=== PATIENT | male | born 1935 | race American Indian/Alaskan Native ===

== ENCOUNTER 2017-04-27 17:18 | Emergency (ER) | payer MEDICARE ==
[~2017-04-27] VITALS: Ht 177.8 cm; Wt 114.8 kg
[~2017-04-27 17:18] MED LIST: ASPI81CH PO; ATOR80 PO; B-12250 MCG PO; CALCA400CH; ESOM20 PO; FISH1000 PO; GLUCOSAMINE CH PO; HYDCHL12.5 PO; OMEPRAZOLE MAGN20 MG PO; VALS80 PO
[2017-08-13] MEDS ORDERED: Omeprazole20 M1 PO (06:29)
[2017-08-13] MEDS ORDERED: Diovan320 MG PO (06:31)
[2017-12-21] MEDS ORDERED: FISH OIL 1,0001 EAC1 PO (15:30)
[2017-12-21] MEDS ORDERED: CYAN100T2 PO (15:30)
== END 2017-04-27 19:12 | disposition home or self-care (01) ==
LOC: ER 17:18
DX: M25.512 Pain in left shoulder (principal); Z88.8 Allergy status to other drugs, medicaments and biological substances; Z79.899 Other long term (current) drug therapy; Z79.82 Long term (current) use of aspirin; Z87.891 Personal history of nicotine dependence
CPT/HCPCS: 73030; 99283

== ENCOUNTER 2017-08-13 06:05 | Emergency (ER) | payer MEDICARE ==
[~2017-08-13] VITALS: Ht 182.9 cm; Wt 113.4 kg
[~2017-08-13 06:05] MED LIST changes: +HYDCHL12.5; -HYDCHL12.5 PO
[2017-08-13] MEDS ORDERED: Omeprazole20 M1 (06:29)
[2017-08-13] MEDS ORDERED: ATOR20 PO (06:30)
[2017-08-13] MEDS ORDERED: Diovan320 MG (06:31)
[2017-08-13] MEDS ORDERED: CEPH500 PO (06:40)
[2017-08-13] MEDS ORDERED: Norco 5-325 Ta1 EACH PO (06:40)
== END 2017-08-13 07:09 | disposition home or self-care (01) ==
LOC: ER 06:05
DX: T25.221A Burn of second degree of right foot, initial encounter (principal); Z88.3 Allergy status to other anti-infective agents; Z79.82 Long term (current) use of aspirin; Z79.899 Other long term (current) drug therapy; Z90.49 Acquired absence of other specified parts of digestive tract; Z95.5 Presence of coronary angioplasty implant and graft; Z87.891 Personal history of nicotine dependence; X08.8XXA Exposure to other specified smoke, fire and flames, initial encounter
CPT/HCPCS: 90714

== ENCOUNTER 2017-08-29 09:08 | Emergency (ER) | payer MEDICARE ==
[~2017-08-29] VITALS: Ht 182.9 cm; Wt 113.4 kg
[~2017-08-29 09:08] MED LIST changes: +ATOR20 PO; +CEPH500 PO; +Diovan320 MG PO; -HYDCHL12.5; +HYDCHL12.5 PO; +Norco 5-325 Ta1 EACH PO; +Omeprazole20 M1 PO
[2017-08-29 10:32] LABS: BASOPHILS ABSOLUTE AUTO 0.06 K/mm3 (0.00-0.23); BASOPHILS PERCENT AUTO 1 % (0-2); EOSINOPHILS ABSOLUTE AUTO 0.22 K/mm3 (0.00-0.68); EOSINOPHILS PERCENT AUTO 3 % (0-6); Hematocrit 42.7 % (37.0-53.0); Hemoglobin 13.4 g/dL (13.5-17.5); IMMATURE GRAN ABSOLUTE AUTO 0.02 K/mm3 (0.00-0.10); IMMATURE GRAN PERCENT AUTO 0 % (0-1); LYMPHOCYTES ABSOLUTE AUTO 1.73 K/mm3 (0.84-5.20); LYMPHOCYTES PERCENT AUTO 21 % (21-46); MONOCYTES ABSOLUTE AUTO 0.91 K/mm3 (0.16-1.47); MONOCYTES PERCENT AUTO 11 % (4-13); Mean Corpuscular HGB Conc 31.4 g/dL (31.5-36.5); Mean Corpuscular Volume 83 fL (80-100); Mean Platelet Volume 8.8 fL (9.1-12.4); NEUTROPHILS ABSOLUTE AUTO 5.43 K/mm3 (1.96-9.15); NEUTROPHILS PERCENT AUTO 65 % (41-73); Platelet Count 369 K/mm3 (150-400); RDW Coefficient Variation 16.2 % (11.7-14.2); RDW Standard Deviation 49.2 fL (35.1-46.3); Red Blood Cell Count 5.16 M/mm3 (4.30-5.90); White Blood Cell Count 8.37 K/mm3 (4.00-11.30)
[2017-08-29 10:51] LABS: Alanine Aminotransfer (ALT/SGP 33 U/L (12-78); Albumin, Blood 3.8 g/dL (3.4-5.0); Albumin/Globulin Ratio 1.1 (0.8-1.8); Alk Phos 46 U/L (50-136); Anion Gap 10 mmol/L (6-16); Aspartate Aminotrans (AST/SGOT 23 U/L (12-37); Bilirubin, Total 0.3 mg/dL (0.1-1.0); Blood Urea Nitrogen 13 mg/dL (8-24); Bun/Creatinine Ratio 10.7 (12.0-20.0); CO2, Blood 26 mmol/L (21-32); Calcium, Blood 9.1 mg/dL (8.5-10.1); Chloride, Blood 106 mmol/L (98-108); Creatinine, Blood 1.22 mg/dL (0.60-1.20); Globulin, Blood 3.6 g/dL (2.2-4.0); Glomerular Filtration Rate >60 (60-); Glucose, Blood 91 mg/dL (70-99); Potassium, Blood 4.1 mmol/L (3.5-5.5); Sodium, Blood 142 mmol/L (136-145); Total Protein, Blood 7.4 g/dL (6.4-8.2)
[2017-08-29 10:54] LABS: Performing Lab VAMCL; Test Name PT INR
[2017-08-29] MEDS ORDERED: Sudogest30 MG PO (15:21)
[2017-08-29] MEDS ORDERED: FIBER SUPPLEMENT PO (15:23)
[2017-08-29] MEDS ORDERED: Stool Soft50 MG/5 ML PO (15:23)
== END 2017-08-29 15:02 | disposition home or self-care (01) ==
LOC: ER 09:08
PROVIDERS: Emergency Medicine
DX: K42.0 Umbilical hernia with obstruction, without gangrene (principal); I10 Essential (primary) hypertension; E78.5 Hyperlipidemia, unspecified; K21.9 Gastro-esophageal reflux disease without esophagitis; Z87.891 Personal history of nicotine dependence; Z88.1 Allergy status to other antibiotic agents; Z79.899 Other long term (current) drug therapy; Z79.82 Long term (current) use of aspirin
CPT/HCPCS: 36415; 74176; 80053; 85025; 85610; 96361; 96365; 96366; 96375; 99284; J1956; J2405; J3010; J7030

== ENCOUNTER 2017-08-30 11:31 | Day surgery (SDC) | payer MEDICARE ==
[~2017-08-30] VITALS: Ht 177.8 cm; Wt 113.4 kg
[~2017-08-30 11:31] MED LIST changes: +FIBER SUPPLEMENT PO; +Stool Soft50 MG/5 ML PO; +Sudogest30 MG PO
== END 2017-08-30 22:49 | disposition home or self-care (01) ==
LOC: ORSCMMR 11:31
PROVIDERS: Surgery
PROC: 0WUF0JZ Supplement Abdominal Wall with Synthetic Substitute, Open Approach (ICD-10-PCS; principal; 2017-08-30 12:45)
DX: K42.0 Umbilical hernia with obstruction, without gangrene (principal); I10 Essential (primary) hypertension; I25.10 Atherosclerotic heart disease of native coronary artery without angina pectoris; G47.33 Obstructive sleep apnea (adult) (pediatric); Z87.891 Personal history of nicotine dependence; Z79.82 Long term (current) use of aspirin; Z79.899 Other long term (current) drug therapy
CPT/HCPCS: 93005; 93010; C1781; J0330; J0690; J1100; J2250; J2405; J2710; J3010; J7120

== ENCOUNTER 2018-04-05 12:06 | Day surgery (SDC) | payer MEDICARE ==
[~2018-04-05] VITALS: Ht 177.8 cm; Wt 110.8 kg
[~2018-04-05 12:06] MED LIST changes: +CYAN100T2 PO; +FISH OIL 1,0001 EAC1 PO
[2018-05-04] MEDS ORDERED: Aspir 8181 MG PO (08:18)
== END 2018-04-05 14:30 | disposition home or self-care (01) ==
LOC: ORSCSDS 12:06
PROVIDERS: Internal Medicine Gastroenterology
PROC: 0D758ZZ Dilation of Esophagus, Via Natural or Artificial Opening Endoscopic (ICD-10-PCS; principal; 2018-04-05 13:30)
PROC: 0DB58ZX Excision of Esophagus, Via Natural or Artificial Opening Endoscopic, Diagnostic (ICD-10-PCS; principal; 2018-04-05 13:30)
PROC: 0DB68ZX Excision of Stomach, Via Natural or Artificial Opening Endoscopic, Diagnostic (ICD-10-PCS; principal; 2018-04-05 13:30)
DX: K22.2 Esophageal obstruction (principal); K29.00 Acute gastritis without bleeding; I10 Essential (primary) hypertension; E78.5 Hyperlipidemia, unspecified; G47.33 Obstructive sleep apnea (adult) (pediatric); Z87.891 Personal history of nicotine dependence; Z79.82 Long term (current) use of aspirin; Z79.899 Other long term (current) drug therapy
CPT/HCPCS: 87081; 88305; 88312; J7120

== ENCOUNTER 2018-06-09 12:51 | Day surgery (SDC) | payer MEDICARE ==
[~2018-06-09] VITALS: Ht 180.3 cm; Wt 109.4 kg
[~2018-06-09 12:51] MED LIST changes: +Aspir 8181 MG PO
--- NOTE | 2018-06-09 14:38 | NUR ---
06/09/18 1438 Artie Tapia NONREBREATHER USED @10LPM DURING PROCEDURE
== END 2018-06-09 15:00 | disposition home or self-care (01) ==
LOC: ORSCSDS 12:51
PROVIDERS: Internal Medicine Gastroenterology
PROC: 0DJ08ZZ Inspection of Upper Intestinal Tract, Via Natural or Artificial Opening Endoscopic (ICD-10-PCS; principal; 2018-06-09 14:15)
PROC: 0D758ZZ Dilation of Esophagus, Via Natural or Artificial Opening Endoscopic (ICD-10-PCS; principal; 2018-06-09 14:15)
DX: K22.2 Esophageal obstruction (principal); K22.70 Barrett's esophagus without dysplasia; Z87.891 Personal history of nicotine dependence; G47.33 Obstructive sleep apnea (adult) (pediatric); E66.9 Obesity, unspecified; Z68.33 Body mass index [BMI] 33.0-33.9, adult; Z79.82 Long term (current) use of aspirin; Z79.899 Other long term (current) drug therapy
CPT/HCPCS: J7120

== ENCOUNTER 2018-08-09 12:54 | Day surgery (SDC) | payer MEDICARE ==
[~2018-08-09] VITALS: Ht 180.3 cm; Wt 110.0 kg
[~2018-08-09 12:54] MED LIST changes: +Stool Softener100 MG PO
== END 2018-08-09 14:40 | disposition home or self-care (01) ==
LOC: ORSCSDS 12:54
PROVIDERS: Internal Medicine Gastroenterology
PROC: 0D757ZZ Dilation of Esophagus, Via Natural or Artificial Opening (ICD-10-PCS; principal; 2018-08-09 14:00)
PROC: 0DB58ZX Excision of Esophagus, Via Natural or Artificial Opening Endoscopic, Diagnostic (ICD-10-PCS; principal; 2018-08-09 14:00)
PROC: 0DB68ZX Excision of Stomach, Via Natural or Artificial Opening Endoscopic, Diagnostic (ICD-10-PCS; principal; 2018-08-09 14:00)
DX: K22.70 Barrett's esophagus without dysplasia (principal); K22.2 Esophageal obstruction; K29.70 Gastritis, unspecified, without bleeding; K44.9 Diaphragmatic hernia without obstruction or gangrene; G47.33 Obstructive sleep apnea (adult) (pediatric); I25.10 Atherosclerotic heart disease of native coronary artery without angina pectoris; E66.9 Obesity, unspecified; Z68.34 Body mass index [BMI] 34.0-34.9, adult; Z79.899 Other long term (current) drug therapy; Z79.82 Long term (current) use of aspirin
CPT/HCPCS: 87081; 88305; J2250; J2704; J7120

== ENCOUNTER 2021-06-11 14:29 | Emergency (ER) | payer MEDICARE, OTHER ==
[~2021-06-11] VITALS: Ht 177.8 cm; Wt 104.3 kg
[~2021-06-11 14:29] MED LIST changes: +HYDROCHLOROTH12.5 MG PO
== END 2021-06-11 17:07 | disposition home or self-care (01) ==
LOC: ER 14:29
DX: S61.412A Laceration without foreign body of left hand, initial encounter (principal); S00.83XA Contusion of other part of head, initial encounter; S40.012A Contusion of left shoulder, initial encounter; W01.10XA Fall on same level from slipping, tripping and stumbling with subsequent striking against unspecified object, initial encounter; Z88.8 Allergy status to other drugs, medicaments and biological substances; Z88.1 Allergy status to other antibiotic agents; Z79.899 Other long term (current) drug therapy; Z79.82 Long term (current) use of aspirin; I10 Essential (primary) hypertension; E78.5 Hyperlipidemia, unspecified; K21.9 Gastro-esophageal reflux disease without esophagitis; Z87.891 Personal history of nicotine dependence
CPT/HCPCS: 12002; 70450; 73060; 73130; 90471; 90714; 99284-25

== ENCOUNTER 2021-08-14 16:03 | Emergency (ER) | payer MEDICARE, OTHER ==
[~2021-08-14] VITALS: Ht 182.9 cm; Wt 102.6 kg
== END 2021-08-14 17:56 | disposition home or self-care (01) ==
LOC: ER 16:03
DX: S06.4X0A Epidural hemorrhage without loss of consciousness, initial encounter (principal); W19.XXXA Unspecified fall, initial encounter; I10 Essential (primary) hypertension
CPT/HCPCS: 93005; 93010; 99285-25

== ENCOUNTER 2022-07-28 13:38 | Day surgery (SDC) | payer MEDICARE ==
[~2022-07-28] VITALS: Ht 177.8 cm; Wt 100.4 kg
[2022-07-28] MEDS ORDERED: Flomax0.4 MG (14:19)
[2022-07-28 16:28] VITALS: BP 105/64
== END 2022-07-28 16:36 | disposition home or self-care (01) ==
LOC: ORSCSDS 13:38
PROVIDERS: Internal Medicine Gastroenterology
PROC: 0DB58ZX Excision of Esophagus, Via Natural or Artificial Opening Endoscopic, Diagnostic (ICD-10-PCS; principal; 2022-07-28 15:15)
PROC: 0D758ZZ Dilation of Esophagus, Via Natural or Artificial Opening Endoscopic (ICD-10-PCS; principal; 2022-07-28 15:15)
DX: K22.70 Barrett's esophagus without dysplasia (principal); R13.10 Dysphagia, unspecified; K44.9 Diaphragmatic hernia without obstruction or gangrene; G47.33 Obstructive sleep apnea (adult) (pediatric); I10 Essential (primary) hypertension; K21.9 Gastro-esophageal reflux disease without esophagitis; E66.9 Obesity, unspecified; Z68.32 Body mass index [BMI] 32.0-32.9, adult; Z79.82 Long term (current) use of aspirin; Z79.899 Other long term (current) drug therapy
CPT/HCPCS: 88305; J0330; J0461; J2001; J2405; J2704; J7120; Q9968

== ENCOUNTER 2022-09-28 12:45 | Emergency (ER) | payer MEDICARE ==
[~2022-09-28] VITALS: Ht 180.3 cm; Wt 83.9 kg
[~2022-09-28 12:45] MED LIST changes: +Flomax0.4 MG
[2022-09-28 13:34] LABS: BASOPHILS ABSOLUTE AUTO 0.02 K/mm3 (0.00-0.23); BASOPHILS PERCENT AUTO 0 % (0-2); EOSINOPHILS ABSOLUTE AUTO 0.07 K/mm3 (0.00-0.68); EOSINOPHILS PERCENT AUTO 1 % (0-6); Hematocrit 39.3 % (37.0-53.0); IMMATURE GRAN ABSOLUTE AUTO 0.01 K/mm3 (0.00-0.10); IMMATURE GRAN PERCENT AUTO 0 % (0-1); LYMPHOCYTES ABSOLUTE AUTO 1.51 K/mm3 (0.84-5.20); LYMPHOCYTES PERCENT AUTO 19 % (21-46); MONOCYTES ABSOLUTE AUTO 0.64 K/mm3 (0.16-1.47); MONOCYTES PERCENT AUTO 8 % (4-13); Mean Corpuscular HGB Conc 30.5 g/dL (31.5-36.5); Mean Corpuscular Volume 82 fL (80-100); Mean Platelet Volume 9.3 fL (9.1-12.4); NEUTROPHILS PERCENT AUTO 72 % (41-73); Platelet Count 239 K/mm3 (150-400); RDW Coefficient Variation 15.9 % (11.7-14.2); RDW Standard Deviation 47.6 fL (35.1-46.3); White Blood Cell Count 8.05 K/mm3 (4.00-11.30)
[2022-09-28 14:06] LABS: Albumin, Blood 4.1 g/dL (3.4-5.0); Albumin/Globulin Ratio 1.2 (0.8-1.8); Bilirubin, Total 0.4 mg/dL (0.1-1.0); Bun/Creatinine Ratio 13.3 (12.0-20.0); Calcium, Blood 9.2 mg/dL (8.5-10.1); Creatinine, Blood 1.05 mg/dL (0.60-1.20); Globulin, Blood 3.3 g/dL (2.2-4.0); Potassium, Blood 3.8 mmol/L (3.5-5.5); Total Protein, Blood 7.4 g/dL (6.4-8.2)
[2022-09-28 16:00] VITALS: BP 118/79
== END 2022-09-28 16:15 | disposition home or self-care (01) ==
LOC: ER 12:45
PROVIDERS: Physician Assistant
DX: R29.898 Other symptoms and signs involving the musculoskeletal system (principal); I10 Essential (primary) hypertension; E78.5 Hyperlipidemia, unspecified; K21.9 Gastro-esophageal reflux disease without esophagitis; Z85.01 Personal history of malignant neoplasm of esophagus; Z88.3 Allergy status to other anti-infective agents; Z79.82 Long term (current) use of aspirin; Z79.899 Other long term (current) drug therapy; Z87.891 Personal history of nicotine dependence
CPT/HCPCS: 70450; 71046; 80053; 84484; 85025; 93005; 93010; 99285-25; J7030

== ENCOUNTER 2023-07-11 22:23 | Observation (INO) | payer MEDICARE ==
[~2023-07-11] VITALS: Ht 182.9 cm; Wt 104.8 kg
[~2023-07-11 22:23] MED LIST changes: +DONE10 PO; +Diovan160 MG PO; -Diovan320 MG PO; -Flomax0.4 MG; +Flomax0.4 MG PO; +OMEP20ER PO; -Omeprazole20 M1 PO
[2023-07-11] MEDS ORDERED: NS 1,000 ML IV SCH (23:45)
[2023-07-11] MEDS ORDERED: Ondansetron HCl 2 MG / ML 2ML Vial IV ONE (23:45)
[2023-07-12 00:37] LABS: BASOPHILS ABSOLUTE AUTO 0.02 K/mm3 (0.00-0.23); BASOPHILS PERCENT AUTO 0 % (0-2); EOSINOPHILS ABSOLUTE AUTO 0.03 K/mm3 (0.00-0.68); EOSINOPHILS PERCENT AUTO 1 % (0-6); Hematocrit 26.8 % (37.0-53.0); Hemoglobin 7.6 g/dL (13.5-17.5); IMMATURE GRAN ABSOLUTE AUTO 0.02 K/mm3 (0.00-0.10); IMMATURE GRAN PERCENT AUTO 0 % (0-1); LYMPHOCYTES ABSOLUTE AUTO 0.64 K/mm3 (0.84-5.20); LYMPHOCYTES PERCENT AUTO 11 % (21-46); MONOCYTES ABSOLUTE AUTO 0.27 K/mm3 (0.16-1.47); MONOCYTES PERCENT AUTO 5 % (4-13); Mean Corpuscular HGB 21.7 pg (26.0-34.0); Mean Corpuscular HGB Conc 28.4 g/dL (31.5-36.5); Mean Corpuscular Volume 77 fL (80-100); Mean Platelet Volume 9.6 fL (9.1-12.4); NEUTROPHILS ABSOLUTE AUTO 4.77 K/mm3 (1.96-9.15); NEUTROPHILS PERCENT AUTO 83 % (41-73); Platelet Count 222 K/mm3 (150-400); RDW Coefficient Variation 16.9 % (11.7-14.2); RDW Standard Deviation 46.7 fL (35.1-46.3); White Blood Cell Count 5.75 K/mm3 (4.00-11.30)
[2023-07-12 00:56] LABS: Albumin, Blood 3.7 g/dL (3.4-5.0); Albumin/Globulin Ratio 1.2 (0.8-1.8); Bilirubin, Total 0.4 mg/dL (0.1-1.0); Bun/Creatinine Ratio 15.6 (12.0-20.0); Calcium, Blood 8.8 mg/dL (8.5-10.1); Creatinine, Blood 0.96 mg/dL (0.60-1.20); Potassium, Blood 4.2 mmol/L (3.5-5.5); Total Protein, Blood 6.7 g/dL (6.4-8.2)
[2023-07-12] MEDS ORDERED: Ondansetron HCl 2 MG / ML 2ML Vial IV ONE (01:15)
[2023-07-12] MEDS ORDERED: ELIQUIS2.5 M1 PO (01:19)
[2023-07-12] MEDS ORDERED: TOPROL XL50 M1 PO (01:19)
[2023-07-12] MEDS ORDERED: FLUT.05NI (02:49)
[2023-07-12] MEDS ORDERED: NS 1,000 ML IV SCH (02:50)
[2023-07-12] MEDS ORDERED: Loperamide HCl 2 MG Cap PO PRN (02:55)
[2023-07-12] MEDS ORDERED: FentaNYL Citrate 50 MCG/ML 2 ML Injection IV PRN (02:55)
[2023-07-12] MEDS ORDERED: Ondansetron HCl 2 MG / ML 2ML Vial IV PRN (02:55)
[2023-07-12] MEDS ORDERED: Pantoprazole Sodium 40 MG Injection IV SCH (03:30)
[2023-07-12 04:01] VITALS: BP 169/84
--- NOTE | 2023-07-12 05:57 | NUR ---
SHIFT SUMMARY PT A&OX4 AND ABLE TO MAKE NEEDS KNOWN. PT IS VERY [place]. PT ARRIVED ON UNIT VIA W/C AND AMBULATED INDEPENDENTLY TO THE BED. PT ORIENTED TO UNIT AND CALL LIGHT. VSS, NO COMPLAINTS OF CP OR SOB. NO ACUTE EVENTS AT THIS TIME. RESPIRATIONS ARE E/U. TELE IS REPORTING NSR. APPROPRIATE FALL PRECAUTIONS IN PLACE AND CALL LIGHT IN REACH.
[2023-07-12 06:27] VITALS: BP 144/79
[2023-07-12 06:50] LABS: Hematocrit 25.6 % (37.0-53.0); Hemoglobin 7.2 g/dL (13.5-17.5)
[2023-07-12 07:02] LABS: International Normalized Ratio 1.12; Prothrombin Time Results 11.9 Sec (9.7-11.5)
[2023-07-12 07:41] VITALS: BP 140/78
[2023-07-12 12:20] LABS: BASOPHILS ABSOLUTE AUTO 0.01 K/mm3 (0.00-0.23); BASOPHILS PERCENT AUTO 0 % (0-2); EOSINOPHILS ABSOLUTE AUTO 0.02 K/mm3 (0.00-0.68); EOSINOPHILS PERCENT AUTO 1 % (0-6); Hematocrit 25.5 % (37.0-53.0); Hemoglobin 7.5 g/dL (13.5-17.5); IMMATURE GRAN ABSOLUTE AUTO 0.01 K/mm3 (0.00-0.10); IMMATURE GRAN PERCENT AUTO 0 % (0-1); LYMPHOCYTES ABSOLUTE AUTO 0.69 K/mm3 (0.84-5.20); LYMPHOCYTES PERCENT AUTO 17 % (21-46); MONOCYTES ABSOLUTE AUTO 0.42 K/mm3 (0.16-1.47); MONOCYTES PERCENT AUTO 10 % (4-13); Mean Corpuscular HGB 22.1 pg (26.0-34.0); Mean Corpuscular HGB Conc 29.4 g/dL (31.5-36.5); Mean Corpuscular Volume 75 fL (80-100); Mean Platelet Volume 9.6 fL (9.1-12.4); NEUTROPHILS ABSOLUTE AUTO 2.95 K/mm3 (1.96-9.15); NEUTROPHILS PERCENT AUTO 72 % (41-73); Platelet Count 218 K/mm3 (150-400); RDW Standard Deviation 45.9 fL (35.1-46.3)
[2023-07-12 12:44] LABS: BASOPHILS ABSOLUTE MAN 0.04 K/mm3 (0.00-0.23); BASOPHILS PERCENT MAN 1 % (0-2); EOSINOPHILS PERCENT MAN 0 % (0-6); LYMPHOCYTES ABSOLUTE MAN 0.57 K/mm3 (0.84-5.20); LYMPHOCYTES PERCENT MAN 14 % (21-46); MONOCYTES ABSOLUTE MAN 0.12 K/mm3 (0.16-1.47); MONOCYTES PERCENT MAN 3 % (4-13); NEUTROPHILS ABSOLUTE MAN 3.36 K/mm3 (1.96-9.15); SEG NEUTROPHILS PERCENT MAN 82 % (41-73); TOTAL CELLS COUNTED 100
[2023-07-12 15:09] VITALS: BP 157/79
--- NOTE | 2023-07-12 18:08 | NUR ---
SHIFT SUMMARY AND DISCHARGE PATIENT ALERT AND INTERACTIVE. PATIENT VERY HARD OF HEARING. PATIENT EAGER TO GET HOME. PATIENT HAS HAD NO FURTHER EPISODES OF DIARRHEA OR SIGNS OF BLEEDING. NEIGHBOR REPORTED THAT PATIENT TOO THREE DOSES OF MEDICATION FOR CONSTIPATION PRIOR TO HAVING DIARRHEA. PATIENT AND EDUCATED ON BOWEL PROTOCOL AND OPTIONS FOR CONSTIPATION. DISCHARGE INSTRUCTIONS REVIEWED WITH AND PATIENT. IV DC'D BELONGINGS SENT HOME WITH PATIENT. PATIENT TRASPORTED OUT VIA WHEELCHAIR BY RN ANESTHETIST.
== END 2023-07-12 18:04 | disposition home or self-care (01) ==
LOC: ER 22:23 → MEDS 22:24 → ER 07-12 02:43 → MEDS 07-12 02:43
PROVIDERS: Emergency Medicine; Family Medicine; ADMIT Internal Medicine
DX: D64.9 Anemia, unspecified (principal); I48.91 Unspecified atrial fibrillation; K21.9 Gastro-esophageal reflux disease without esophagitis; N40.0 Benign prostatic hyperplasia without lower urinary tract symptoms; F03.90 Unspecified dementia, unspecified severity, without behavioral disturbance, psychotic disturbance, mood disturbance, and anxiety; I10 Essential (primary) hypertension; E78.5 Hyperlipidemia, unspecified; Z88.8 Allergy status to other drugs, medicaments and biological substances; Z79.899 Other long term (current) drug therapy; Z85.01 Personal history of malignant neoplasm of esophagus
CPT/HCPCS: 36415; 80053; 82272; 83690; 83880; 84484; 85014; 85018; 85025; 85610; 93005; 93010; 96361; 96374; 96375; 99285-25; C9113; G0378; J2405; J7030

== ENCOUNTER 2024-02-23 06:12 | Emergency (ER) | payer MEDICARE ==
[~2024-02-23] VITALS: Ht 182.9 cm; Wt 104.3 kg
[~2024-02-23 06:12] MED LIST changes: +ELIQUIS2.5 M1 PO; +FLUT.05NI; +TOPROL XL50 M1 PO
[2024-02-23] MEDS ORDERED: Acetaminophen 500 MG Tab PO ONE (06:50)
[2024-02-23 06:56] LABS: BASOPHILS ABSOLUTE AUTO 0.01 K/mm3 (0.00-0.23); BASOPHILS PERCENT AUTO 0 % (0-2); EOSINOPHILS PERCENT AUTO 1 % (0-6); Hematocrit 35.4 % (37.0-53.0); IMMATURE GRAN ABSOLUTE AUTO 0.02 K/mm3 (0.00-0.10); IMMATURE GRAN PERCENT AUTO 0 % (0-1); LYMPHOCYTES ABSOLUTE AUTO 0.94 K/mm3 (0.84-5.20); LYMPHOCYTES PERCENT AUTO 12 % (21-46); MONOCYTES ABSOLUTE AUTO 1.06 K/mm3 (0.16-1.47); MONOCYTES PERCENT AUTO 14 % (4-13); Mean Corpuscular HGB 24.3 pg (26.0-34.0); Mean Corpuscular HGB Conc 31.1 g/dL (31.5-36.5); Mean Corpuscular Volume 78 fL (80-100); Mean Platelet Volume 9.4 fL (9.1-12.4); NEUTROPHILS ABSOLUTE AUTO 5.68 K/mm3 (1.96-9.15); NEUTROPHILS PERCENT AUTO 73 % (41-73); Platelet Count 178 K/mm3 (150-400); RDW Coefficient Variation 15.4 % (11.7-14.2); RDW Standard Deviation 43.6 fL (35.1-46.3); Red Blood Cell Count 4.52 M/mm3 (4.30-5.90); White Blood Cell Count 7.81 K/mm3 (4.00-11.30)
[2024-02-23 07:08] LABS: Albumin, Blood 3.6 g/dL (3.4-5.0); Albumin/Globulin Ratio 1.1 (0.8-1.8); Bilirubin, Total 0.4 mg/dL (0.1-1.0); Bun/Creatinine Ratio 15.5 (12.0-20.0); Creatinine, Blood 0.91 mg/dL (0.60-1.20); Globulin, Blood 3.2 g/dL (2.2-4.0); Magnesium, Blood 2.1 mg/dL (1.6-2.4); Potassium, Blood 3.9 mmol/L (3.5-5.5); Total Protein, Blood 6.8 g/dL (6.4-8.2)
[2024-02-23 10:15] VITALS: BP 128/87
== END 2024-02-23 10:29 | disposition home or self-care (01) ==
LOC: ER 06:12
PROVIDERS: Student in an Organized Health Care Education/Training Program
DX: R07.89 Other chest pain (principal); E78.5 Hyperlipidemia, unspecified; I10 Essential (primary) hypertension; I25.10 Atherosclerotic heart disease of native coronary artery without angina pectoris; K21.9 Gastro-esophageal reflux disease without esophagitis; F03.90 Unspecified dementia, unspecified severity, without behavioral disturbance, psychotic disturbance, mood disturbance, and anxiety; Z87.891 Personal history of nicotine dependence; Z88.6 Allergy status to analgesic agent; Z88.8 Allergy status to other drugs, medicaments and biological substances; Z79.02 Long term (current) use of antithrombotics/antiplatelets; Z79.899 Other long term (current) drug therapy
CPT/HCPCS: 71046; 80053; 83735; 84484; 85025; 93005; 93010; 99284-25; A9270

== ENCOUNTER 2024-05-14 17:28 | Emergency (ER) | payer MEDICARE ==
[~2024-05-14] VITALS: Ht 182.9 cm; Wt 83.9 kg
[2024-05-15 00:06] LABS: BASOPHILS ABSOLUTE AUTO 0.04 K/mm3 (0.00-0.23); BASOPHILS PERCENT AUTO 1 % (0-2); EOSINOPHILS ABSOLUTE AUTO 0.06 K/mm3 (0.00-0.68); EOSINOPHILS PERCENT AUTO 1 % (0-6); Hematocrit 39.1 % (37.0-53.0); Hemoglobin 11.8 g/dL (13.5-17.5); IMMATURE GRAN ABSOLUTE AUTO 0.02 K/mm3 (0.00-0.10); IMMATURE GRAN PERCENT AUTO 0 % (0-1); LYMPHOCYTES ABSOLUTE AUTO 1.32 K/mm3 (0.84-5.20); LYMPHOCYTES PERCENT AUTO 17 % (21-46); MONOCYTES ABSOLUTE AUTO 0.89 K/mm3 (0.16-1.47); MONOCYTES PERCENT AUTO 11 % (4-13); Mean Corpuscular HGB 23.3 pg (26.0-34.0); Mean Corpuscular HGB Conc 30.2 g/dL (31.5-36.5); Mean Corpuscular Volume 77 fL (80-100); Mean Platelet Volume 9.8 fL (9.1-12.4); NEUTROPHILS ABSOLUTE AUTO 5.55 K/mm3 (1.96-9.15); NEUTROPHILS PERCENT AUTO 70 % (41-73); Platelet Count 323 K/mm3 (150-400); RDW Coefficient Variation 17.6 % (11.7-14.2); RDW Standard Deviation 49.5 fL (35.1-46.3); Red Blood Cell Count 5.07 M/mm3 (4.30-5.90); White Blood Cell Count 7.88 K/mm3 (4.00-11.30)
[2024-05-15 00:17] LABS: Albumin, Blood 4.1 g/dL (3.4-5.0); Albumin/Globulin Ratio 1.3 (0.8-1.8); Bilirubin, Total 0.3 mg/dL (0.1-1.0); Bun/Creatinine Ratio 20.2 (12.0-20.0); Calcium, Blood 9.3 mg/dL (8.5-10.1); Creatinine, Blood 0.99 mg/dL (0.60-1.20); Globulin, Blood 3.1 g/dL (2.2-4.0); Potassium, Blood 3.9 mmol/L (3.5-5.5); Total Protein, Blood 7.2 g/dL (6.4-8.2)
[2024-05-15 03:14] LABS: Source, Urine Clean Catch
[2024-05-15 03:18] LABS: Bilirubin, Urine Neg (Neg); Blood, Urine Neg (Neg); Glucose Qualitative, Urine Neg (Neg); Ketones, Urine 1+ (Neg); Leukocyte Esterase, Urine Neg (Neg); Nitrite, Urine Neg (Neg); Protein, Urine Neg (Neg); Urobilinogen, Urine NORM (Normal)
[2024-05-15 03:23] LABS: Appearance, Urine Clear (Clear); Color, Urine Yellow (P-Yellow)
[2024-05-15 04:10] VITALS: BP 142/84
== END 2024-05-15 06:48 | disposition home or self-care (01) ==
LOC: ER 17:28
PROVIDERS: Emergency Medicine
DX: I48.91 Unspecified atrial fibrillation (principal); R79.89 Other specified abnormal findings of blood chemistry; I10 Essential (primary) hypertension; E78.5 Hyperlipidemia, unspecified; K21.9 Gastro-esophageal reflux disease without esophagitis; Z87.891 Personal history of nicotine dependence; Z79.51 Long term (current) use of inhaled steroids; Z79.899 Other long term (current) drug therapy; Z88.6 Allergy status to analgesic agent; Z88.8 Allergy status to other drugs, medicaments and biological substances; Z59.89 Other problems related to housing and economic circumstances
CPT/HCPCS: 71260; 80053; 81003; 84484; 85025; 85379; 93005; 93010; 99285-25; Q9967

== ENCOUNTER 2024-10-07 11:03 | Emergency (ER) | payer MEDICARE ==
[~2024-10-07] VITALS: Ht 172.7 cm; Wt 59.0 kg
[2024-10-07 11:50] LABS: BASOPHILS ABSOLUTE AUTO 0.01 K/mm3 (0.00-0.23); BASOPHILS PERCENT AUTO 0 % (0-2); EOSINOPHILS ABSOLUTE AUTO 0.09 K/mm3 (0.00-0.68); EOSINOPHILS PERCENT AUTO 2 % (0-6); Hematocrit 35.4 % (37.0-53.0); Hemoglobin 11.0 g/dL (13.5-17.5); IMMATURE GRAN ABSOLUTE AUTO 0.01 K/mm3 (0.00-0.10); IMMATURE GRAN PERCENT AUTO 0 % (0-1); LYMPHOCYTES ABSOLUTE AUTO 0.86 K/mm3 (0.84-5.20); LYMPHOCYTES PERCENT AUTO 19 % (21-46); MONOCYTES ABSOLUTE AUTO 0.46 K/mm3 (0.16-1.47); MONOCYTES PERCENT AUTO 10 % (4-13); Mean Corpuscular HGB Conc 31.1 g/dL (31.5-36.5); Mean Corpuscular Volume 82 fL (80-100); NEUTROPHILS ABSOLUTE AUTO 3.23 K/mm3 (1.96-9.15); NEUTROPHILS PERCENT AUTO 69 % (41-73); NRBC ABSOLUTE 0.00 K/mm3 (0.00-0.02); NRBC Auto 0.0 /100 WBC (0.0-0.2); Platelet Count 170 K/mm3 (150-400); RDW Coefficient Variation 18.1 % (11.7-14.2); RDW Standard Deviation 54.7 fL (35.1-46.3)
[2024-10-07 12:21] LABS: Alanine Aminotransfer (ALT/SGP 27.0 U/L (12-78); Albumin, Blood 3.3 g/dL (3.4-5.0); Albumin/Globulin Ratio 1.1 (0.8-1.8); Anion Gap 7.0 mmol/L (3-11); Aspartate Aminotrans (AST/SGOT 21.0 U/L (12-37); Bilirubin, Total 0.4 mg/dL (0.1-1.0); Blood Urea Nitrogen 20.0 mg/dL (8-24); CO2, Blood 27.0 mmol/L (21-32); Calcium, Blood 8.3 mg/dL (8.5-10.1); Chloride, Blood 110.0 mmol/L (98-108); Creatinine, Blood 0.92 mg/dL (0.60-1.20); Globulin, Blood 3.1 g/dL (2.2-4.0); Glucose, Blood 103.0 mg/dL (70-99); Potassium, Blood 4.0 mmol/L (3.5-5.5); Sodium, Blood 140.0 mmol/L (136-145); Total Protein, Blood 6.4 g/dL (6.4-8.2)
[2024-10-07] MEDS ORDERED: NS 1,000 ML IV SCH (13:20)
[2024-10-07 14:32] VITALS: BP 113/60
== END 2024-10-07 14:40 | disposition home or self-care (01) ==
LOC: ER 11:03
PROVIDERS: Student in an Organized Health Care Education/Training Program
DX: R07.89 Other chest pain (principal); I10 Essential (primary) hypertension; E78.5 Hyperlipidemia, unspecified; K21.9 Gastro-esophageal reflux disease without esophagitis; I25.10 Atherosclerotic heart disease of native coronary artery without angina pectoris; N40.0 Benign prostatic hyperplasia without lower urinary tract symptoms; F03.90 Unspecified dementia, unspecified severity, without behavioral disturbance, psychotic disturbance, mood disturbance, and anxiety; Z87.891 Personal history of nicotine dependence; Z88.6 Allergy status to analgesic agent; Z88.8 Allergy status to other drugs, medicaments and biological substances; Z79.01 Long term (current) use of anticoagulants; Z79.899 Other long term (current) drug therapy; Z59.89 Other problems related to housing and economic circumstances
CPT/HCPCS: 71045; 80053; 83690; 84484; 85025; 93005; 93010; 99285-25; J7030